=== PATIENT | male | born 1995 | race African-American/Black ===

== ENCOUNTER 2021-05-25 09:43 | Emergency (ER) | payer OTHER ==
[~2021-05-25] VITALS: Ht 185.4 cm; Wt 100.0 kg
[2021-05-25 09:53] VITALS: BP 139/85
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
[2021-05-25] MEDS ORDERED: DIPHTH,PERTUSS(ACELL),TET TOX 0.5 ML DISP.SYRIN. VAX IM ONE (10:15)
[2021-05-25] MEDS ORDERED: HYDROcodone/APAP 10/325 1 TAB TABLET PO ONE (10:15)
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
[2021-05-25] MEDS ORDERED: HYDR-2765 PO (10:53)
== END 2021-05-25 11:15 | disposition home or self-care (01) ==
LOC: ER 09:43
DX: S50.312A Abrasion of left elbow, initial encounter (principal); S50.311A Abrasion of right elbow, initial encounter; S90.811A Abrasion, right foot, initial encounter; R51.9 Headache, unspecified; M54.2 Cervicalgia; M79.644 Pain in right finger(s); V19.9XXA Pedal cyclist (driver) (passenger) injured in unspecified traffic accident, initial encounter; Y93.55 Activity, bike riding; Y92.89 Other specified places as the place of occurrence of the external cause; Y99.8 Other external cause status
CPT/HCPCS: 70450; 71045; 72125; 72170; 73130; 73630; 90471; 90715; 99284

== ENCOUNTER 2021-07-19 12:24 | Emergency (ER) | payer SELFPAY ==
[~2021-07-19] VITALS: Ht 185.4 cm; Wt 100.0 kg
[~2021-07-19 12:24] MED LIST: HYDR-2765 PO
[2021-07-19 12:29] VITALS: BP 151/85
[2021-07-19] MEDS ORDERED: valACYclovir 500 MG TABLET. PO STA (13:04)
[2021-07-19] MEDS ORDERED: VALA10005 PO ×2 (13:17→13:30)
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
[2021-07-19] MEDS ORDERED: HYDR-2759 PO (13:28)
[2021-07-19] MEDS ORDERED: HYDROcodone/APAP 5/325MG 1 TAB TABLET PO ONE (13:30)
[2021-07-19 14:03] LABS: COLOR,URINE YELLOW
[2021-07-19 14:04] LABS: BACTERIA,URINE 0 /HPF (0-FEW); CLARITY,URINE CLEAR; GLUCOSE,URINE NEG (NEG); NITRITE,URINE NEG (NEG); SQUAMOUS EPITHELIAL CELL,UR FEW /LPF; UROBILINOGEN,URINE 0.2 mg/dL (0.2 mg/dL)
[2021-07-20 17:09] LABS: CHLAMYDIA PROBE Negative (Negative)
[2021-07-22 06:07] LABS: HERPES SIMPLEX TYPE 1 Negative (Negative); HERPES SIMPLEX TYPE 2 Positive (Negative)
== END 2021-07-19 13:45 | disposition home or self-care (01) ==
LOC: ER 12:24
DX: B00.9 Herpesviral infection, unspecified (principal)
CPT/HCPCS: 36415; 81001; 86695; 87086; 87491; 87529; 87591; 99283